=== PATIENT | female | born 1960 | race Caucasian/White ===

== ENCOUNTER → 2017-09-27 | Outpatient (CLI) | payer OTHER ==
--- NOTE | 2017-09-27 15:04 | XR ---
Bilateral knees HISTORY: Chronic knee pain 3 views of each knee submitted on a total of 6 images. Comparison to right knee 11/03/2014 Marginal spurring, joint space loss greatest in the medial compartments. Alignment is maintained. Scl erotic density in the proximal right metaphyseal tibia appears nonaggressive and is stable. Bone mine ralization otherwise maintained. There is suprapatellar increased density compatible joint effusions. IMPRESSION: Osteoarthritis with bilateral joint effusions.. Stable possible enchondroma proximal righ t tibia.
== END ==
LOC: RADXRMAIN 11:19
PROVIDERS: ATTEND Internal Medicine
DX: M17.0 Bilateral primary osteoarthritis of knee (principal)